=== PATIENT | female | born 1995 | race Caucasian/White ===

== ENCOUNTER → 2017-05-04 09:25 | Outpatient (CLI) | payer OTHER, BC, SELFPAY ==
--- NOTE | 2017-05-04 09:55 | US_ITS ---
US abdomen limited: INDICATION: Right upper quadrant tenderness with nausea vomiting and abdominal pain ITS.REASON: N/V,ABDOMINAL PAIN ORDERING PHYSICIAN: Jacqueline Parks PATIENT AGE: 21 years FINDINGS: Pancreas: Somewhat obscured by overlying bowel gas and may be better evaluated with CT clinically warranted. Liver: Unremarkable. Right kidney: Unremarkable. Gallbladder: Unremarkable. No stones, gallbladder wall thickening, or pericholecystic fluid. Common bile duct is normal at 3 mm. IMPRESSION: Negative right upper quadrant ultrasound
[2017-05-04 10:46] LABS: Basophils % 0.4 % (0.1-2.0); Eosinophils # 0.2 K/mm3 (0.0-0.4); Eosinophils % 2.5 % (0.1-12.0); Hematocrit 33.9 % (37.0-47.0); Lymphocytes # 1.8 K/mm3 (0.7-4.5); Lymphocytes % 23.2 K/mm3 (10-50); Mean Corpuscular HGB Conc 32.3 g/dL (31.8-35.4); Mean Corpuscular Hemoglobin 27.3 pg (27.0-31.2); Mean Corpuscular Volume 84.7 fl (81-99); Mean Platelet Volume 8.9 fl (7.4-10.4); Monocytes # 0.4 K/mm3 (0.1-1.0); Monocytes % 5.1 % (1.7-9.3); Neutrophils # 5.5 K/mm3 (1.8-7.8); Neutrophils % 68.8 % (37.0-80.0); Platelet Count 304 K/mm3 (142-424); Red Blood Count 4.01 M/mm3 (4.20-5.40); Red Cell Distribution Width 14.4 % (11.5-17.5)
[2017-05-04 12:28] LABS: Alanine Aminotransferase 34 U/L (12-78); Albumin Level 2.6 gm/dL (3.4-5.0); Albumin/Globulin Ratio 0.7 (1.1-1.8); Alkaline Phosphatase 154 U/L (46-116); Amylase 34 U/L (25-125); Anion Gap 14.8 mEq/L (5-15); Aspartate Amino Transferase 28 U/L (15-37); Bilirubin,Total 0.3 mg/dL (0.2-1.0); Blood Urea Nitrogen 14 mg/dL (7-18); Calcium 8.7 mg/dL (8.5-10.1); Carbon Dioxide 24 mmol/L (21.0-32.0); Chloride 110 mmol/L (98-107); Creatinine,Serum 0.71 mg/dL (0.55-1.02); Estimated Glomerular Filt Rate 106 ml/min (>60); GFR (African American) 128 ML/MIN (>60); Globulin 3.5 gm/dl (1.3-3.2); Glucose 76 mg/dL (74-106); Lipase 89 u/L (73-393); Potassium 4.8 mmoL/L (3.5-5.1); Sodium 144 mmol/L (136-145); Total Protein,Serum 6.1 gm/dL (6.4-8.2)
== END ==
PROVIDERS: PCP Internal Medicine Adolescent Medicine; Visit Provider Nurse Practitioner Family
DX: R10.11 Right upper quadrant pain (principal); R11.2 Nausea with vomiting, unspecified
CPT/HCPCS: 36415; 76705; 80053; 82150; 83690; 85025